=== PATIENT | female | born 1985 | race Caucasian/White ===

== ENCOUNTER 2017-08-12 11:59 | Emergency (ER) | payer MEDICAID ==
[~2017-08-12 11:59] MED LIST: NALOXONE (0.4 MG/ML) INJ
[2017-08-12] MEDS: SOD CHLORIDE 0.9% 1,000 ML IV (12:14)
[2017-08-12] MEDS: NALOXONE 2 MG SYG IV ×2 (12:14→14:48)
== END 2017-08-12 15:10 | disposition left against medical advice (07) ==
LOC: E/R 11:59
DX: T40.1X1A Poisoning by heroin, accidental (unintentional), initial encounter (principal); T43.621A Poisoning by amphetamines, accidental (unintentional), initial encounter; F17.210 Nicotine dependence, cigarettes, uncomplicated; R40.2142 Coma scale, eyes open, spontaneous, at arrival to emergency department; R40.2362 Coma scale, best motor response, obeys commands, at arrival to emergency department; R40.2242 Coma scale, best verbal response, confused conversation, at arrival to emergency department
CPT/HCPCS: 96374; 96376; 99284-25